=== PATIENT | female | born 1940 | race Caucasian/White ===

== ENCOUNTER 2017-12-04 20:15 | Emergency (ER) | payer MEDICARE, BC ==
[~2017-12-04] VITALS: Ht 154.9 cm; Wt 72.7 kg
[2017-12-04] MEDS ORDERED: albuterol 2.5 MG/3 ML nebule NEB ONE (21:20)
[2017-12-04] MEDS ORDERED: dexamethasone 4mg tablet PO ONE (21:20)
[2017-12-04] MEDS ORDERED: albuterol 2.5 MG/3 ML nebule ONE (21:24)
[2017-12-04 21:54] VITALS: BP 137/51
== END 2017-12-04 21:56 | disposition home or self-care (01) ==
LOC: ER 20:16
DX: J44.1 Chronic obstructive pulmonary disease with (acute) exacerbation (principal); J70.5 Respiratory conditions due to smoke inhalation
CPT/HCPCS: 94640; 94760; 99284; J8540